=== PATIENT | male | born 1990 | race Caucasian/White ===

== ENCOUNTER 2023-07-23 09:51 | Outpatient (CLI) | payer OTHER, SELFPAY ==
[2023-07-23 10:56] LABS: Liquefaction Semen Complete in 30 min. (<30 minutes); Semen Color Opaque (Grey-opaque); Semen Immotility 40 %; Semen Morphology Result to Follow; Semen Non-Progressive Motility 10 %; Semen Progressive Motility 50 % (>32); Semen Total Motility 60 (>40% (PM+NP)); Semen Viscosity Not Increased (Not Increa.); Sperm Count 94.5 Mil/mL (60-150 million/mL)
[2023-07-30 23:11] LABS: Fructose, Semen 206 mg/dL (150-600)
== END 2023-07-23 09:52 | disposition home or self-care (01) ==
LOC: CHSLAB 09:56
PROVIDERS: PCP Family Medicine; Visit Provider Family Medicine
DX: N46.9 Male infertility, unspecified (principal)
CPT/HCPCS: 82757; 88160; 89320